=== PATIENT | female | born 1985 | race Caucasian/White ===

== ENCOUNTER 2017-01-22 14:51 | Outpatient (CLI) | payer OTHER ==
--- NOTE | 2017-01-22 16:47 | DIAGNOSTIC IMAGING REPORT ---
PROCEDURE: MG BILATERAL DIAGNOSTIC W/CAD INDICATION: Left breast pain. Baseline mammogram. TECHNIQUE: CC and MLO digital views of each breast with true-lateral digital view of the left breast. In addition, high-resolution left breast ultrasound was performed (18 mHz). COMPARISON: None. FINDINGS: MAMMOGRAM: Computer-aided detection applied. Moderately dense parenchymal pattern. No evidence of mass or suspicious calcification. BREAST ULTRASOUND: Normal parenchyma. No evidence of mass or cyst. No evidence of adenopathy. IMPRESSION: 1. Negative mammogram and left breast ultrasound. 2. Findings discussed with the patient and called to ALEJANDRO Hanna. RESULT CODE: 1- Negative. A. A negative report should not delay biopsy if a dominant or clinically suspicious mass is present. 10-15% of cancers are not identified by x-ray. B. A negative report may reinforce clinical impression. C. Adenosis and dense breasts may obscure an underlying neoplasm. D. False positive reports average 6-10%. E.. A yearly screening mammogram is recommended. A reminder letter will be scheduled.
== END 2017-01-22 23:00 | disposition home or self-care (01) ==
LOC: MAM SRH 14:51
DX: N64.4 Mastodynia (principal)